=== PATIENT | male | born 1990 | race African-American/Black ===

== ENCOUNTER 2022-08-06 08:30 | Emergency (ER) | payer OTHER, SELFPAY ==
[2022-08-06] VITALS (7 sets, daily range): BP systolic 127–154; BP diastolic 89–100; PULSE 70–107; RESP 14–19; O2SAT 98–99
--- NOTE | ~2022-08-06 | US_ITS ---
US right upper quadrant INDICATION: Epigastric pain. PROCEDURE: Realtime right upper abdominal ultrasound. COMPARISON: No prior studies for comparison. FINDINGS: The pancreas is normal without focal mass or pancreatic ductal dilation. Liver echotexture is normal without focal mass or intrahepatic biliary dilatation. Liver is enlarged measuring 18 cm. There is normal directional flow in the portal vein. The gallbladder is normal without stones, gallbladder wall thickening or pericholecystic fluid. Comm on bile duct measures 4 mm. No sonographic Gifford's sign. IMPRESSION: 1: Hepatomegaly. Reviewed, dictated and finalized at location L. IMPRESSION: 1: Hepatomegaly.
--- NOTE | ~2022-08-06 | XR_ITS ---
EXAMINATION: XR chest 2V DATE: 08/06/2022 09:20 INDICATION: Right chest pain. Nausea. Shortness of breath. TECHNIQUE: Frontal and lateral views of the chest were obtained. COMPARISON: None. FINDINGS: The chest demonstrates clear lungs without pneumonia, pleural effusion, or pneumothorax. Th e heart size is normal. IMPRESSION: 1. No acute cardiopulmonary disease. Reviewed, dictated and finalized at location A.
--- NOTE | 2022-08-06 08:51 | ECG_ITS ---
Measurements Intervals [place] Rate: 79 P: 57 ID: [id number] QRS: 51 QRSD: 104 T: 38 QT: 352 QTc: 405 Interpretive Statements SINUS RHYTHM BORDERLINE ECG NO PREVIOUS ECG AVAILABLE FOR COMPARISON Electronically Signed On 08-06-2022 9:46:19 CDT by Kvng Martin D.O.
[2022-08-06] MEDS: BELLADONNA ALK/PHENOB ELIX 10 ML, MAG HYDROX/ALUMINUM HYD/SIMETH 30 ML, LIDOCAINE HCL 2... PO (08:59)
[2022-08-06 09:14] LABS: Basophils Percent Auto 0.7 % (0.2-1.2); Eosinophils Absolute Auto 0.1 K/mm3 (0-0.3); Eosinophils Percent Auto 1.4 % (0-4.4); Hematocrit 39.1 % (42.0-52.0); Hemoglobin 13.4 g/dL (14.0-18.0); Immature Granulocyte Absolute 0.01 K/mm3 (0.00-0.031); Immature Granulocyte Percent A 0.2 % (0-0.5); Lymphocytes Absolute Auto 2.15 K/mm3 (0.9-3.2); Lymphocytes Percent Auto 36.4 % (18.3-44.2); Mean Corpuscular HGB Conc 34.3 g/dl (32-36); Mean Corpuscular Hemoglobin 28.9 pg (26-34); Mean Corpuscular Volume 84.3 fl (80-100); Mean Platelet Volume 9.7 fl (7.4-10.4); Monocytes Absolute Auto 0.4 K/mm3 (0.1-0.6); Monocytes Percent Auto 5.9 % (2.6-8.5); Neutrophils Absolute Auto 3.3 K/mm3 (1.3-6.7); Neutrophils Percent Auto 55.4 % (45.5-73.1); Platelet Count Result 245 k/mm3 (150-375); Red Blood Count 4.64 M/mm3 (4.6-6.20); Red Cell Distribution Width 11.8 % (11.5-14.5); White Blood Count 5.9 K/mm3 (4.5-10.0)
[2022-08-06 09:20] LABS: INR 0.9; Prothrombin Time 12.8 Seconds (11.1-14.7)
[2022-08-06 09:21] LABS: Partial Thromboplastin Time 26.9 SECONDS (22.3-36.8)
[2022-08-06 09:22] LABS: Alanine Aminotransferase 183 U/L (6-50); Albumin Level 4.2 g/dL (3.5-5.1); Alkaline Phosphatase 101 U/L (38-126); Anion Gap 5 mmol/L (8-16); Aspartate Amino Transferase 115 U/L (17-59); Bilirubin,Total 0.4 mg/dL (0.2-1.3); Blood Urea Nitrogen 13 mg/dL (9-20); Calcium 8.9 mg/dL (8.4-10.2); Carbon Dioxide 29 mmol/L (22-30); Chloride 105 mmol/L (98-107); Estimated CRCL calculation 99 ml/min; Estimated Glomerular Filt Rate > 60; Glucose 116 mg/dL (65-110); Lipase 120 U/L (23-300); Potassium 3.6 mmol/L (3.4-5.0); Sodium 139 mmol/L (137-145)
--- NOTE | 2022-08-06 09:37 | ED.GENADULT ---
HPI - General Adult General Chief complaint: Unspecified Stated complaint: Heart palps, n/v, cold sweats Time Seen by Provider: 08/06/22 08:32 History of Present Illness HPI narrative: Patient is a 31-year-old male who presents ER with chest discomfort and tightness. Ongoing for a week. Associated with burning back of his throat and worsens with laying down flat. No modification with eating or drinking. No fevers chills or sweats. No exertional chest pain. Patient has had some nausea and vomiting with this. Denies blood in the emesis. No dark black stools. Had some sweats as well. Related Data Allergies Allergy/AdvReac Type Severity Reaction Status Date / Time No Known Allergies Allergy Verified 08/06/22 08:37 Review of Systems Review of Systems: All systems reviewed & are unremarkable except as noted in HPI and below Constitutional: Constitutional: Denies chills and Denies fever(s) Comments: Sweats ENT: Denies nasal congestion and Denies sore throat Cardiovascular: Cardiovascular: Reports chest pain, Denies irregular heart rhythm and Denies radiating jaw, neck or arm pain Respiratory: Respiratory: Denies cough, Denies dyspnea and Denies wheezing Gastrointestinal: Gastrointestinal: Denies abdominal pain, Reports heartburn, Reports nausea and Reports vomiting PMFSH Past Medical History Medical History (Updated 08/06/22 @ 13:45 by Steve Marc MD) GERD (gastroesophageal reflux disease) Surgical History Surgical History (Updated 08/06/22 @ 13:45 by Steve Marc MD) No history of previous surgery Exam Narrative: GENERAL: Well-appearing, well-nourished, and in no acute distress. HEAD: Normocephalic, atraumatic. ENT: Mucous membranes moist. CHEST: Clear to auscultation. No respiratory distress. HEART: Regular rate and rhythm. Normal peripheral pulses. ABDOMEN: Soft, nontender, nondistended. EXTREMITIES: Normal range of motion. No edema. SKIN: Warm, dry, no rash. NEURO: Alert and oriented x3. PSYCH: Normal mood and affect. Course Course Emergency Course: Patient resting comfortably. Troponin negative x2. Patient having some hiccuping after GI cocktail. On follow-up with PCP. Patient verbalized understanding. Vital Signs Vital signs: Vital Signs Pulse Rate 98 08/06/22 08:34 Respiratory Rate 15 08/06/22 08:34 Blood Pressure 154/100 H 08/06/22 08:34 Pulse Oximetry 99 08/06/22 08:34 Oxygen Delivery Room Air 08/06/22 08:34 Pulse Rate 88 08/06/22 11:27 Respiratory Rate 16 08/06/22 11:27 Blood Pressure 127/89 08/06/22 11:27 Pulse Oximetry 98 08/06/22 11:27 Oxygen Delivery Room Air 08/06/22 08:34 Medical Decision Making Vital Signs Vital Signs: Vital Signs Pulse Rate 98 08/06/22 08:34 Respiratory Rate 15 08/06/22 08:34 Blood Pressure 154/100 H 08/06/22 08:34 Pulse Oximetry 99 08/06/22 08:34 Oxygen Delivery Room Air 08/06/22 08:34 Pulse Rate 88 08/06/22 11:27 Respiratory Rate 16 08/06/22 11:27 Blood Pressure 127/89 08/06/22 11:27 Pulse Oximetry 98 08/06/22 11:27 Oxygen Delivery Room Air 08/06/22 08:34 Lab Data 08/06/22 09:04 08/06/22 09:04 Labs: Lab Results 08/06/22 08/06/22 Range/Units 09:04 12:11 WBC 5.9 (4.5-10.0) K/mm3 RBC 4.64 (4.6-6.20) M/mm3 Hgb 13.4 L (14.0-18.0) g/dL Hct 39.1 L (42.0-52.0) % MCV 84.3 (80-100) fl MCH 28.9 (26-34) pg MCHC 34.3 (32-36) g/dl RDW 11.8 (11.5-14.5) % Plt Count 245 (150-375) k/mm3 MPV 9.7 (7.4-10.4) fl Immature Gran % (Auto) 0.2 (0-0.5) % Neut % (Auto) 55.4 (45.5-73.1) % Lymph % (Auto) 36.4 (18.3-44.2) % [place] % (Auto) 5.9 (2.6-8.5) % Eos % (Auto) 1.4 (0-4.4) % Baso % (Auto) 0.7 (0.2-1.2) % Lymph # (Auto) 2.15 (0.9-3.2) K/mm3 [place] # (Auto) 0.4 (0.1-0.6) K/mm3 Eos # (Auto) 0.1 (0-0.3) K/mm3 Baso # (Auto) 0.0 (0.0-0.1) K/mm3
[2022-08-06 09:53] LABS: Troponin I 0.014 ng/mL (0.000-0.034)
[2022-08-06] MEDS: KETOROLAC 30 MG/ML VIAL (*BKC) IV PUSH (11:45)
[2022-08-06 12:37] LABS: Troponin I < 0.012 ng/mL (0.000-0.034)
== END 2022-08-06 13:50 | disposition home or self-care (01) ==
PROVIDERS: Emergency Provider Emergency Medicine
DX: R07.89 Other chest pain (principal); K21.9 Gastro-esophageal reflux disease without esophagitis; R16.0 Hepatomegaly, not elsewhere classified
CPT/HCPCS: 36415; 71046; 76705; 80053; 83690; 84484; 85025; 85610; 85730; 93005; 96374; 99284; A9270; J1885

== ENCOUNTER 2022-08-26 13:52 | Outpatient (CLI) | payer OTHER, SELFPAY ==
[2022-08-26 15:42] LABS: Iron 67 ug/dL (49-181)
[2022-08-26 15:58] LABS: Percent Iron Saturation 20 % (20-50)
[2022-08-26 16:15] LABS: Hepatitis B Surface Antigen Negative (Negative)
[2022-08-26 16:21] LABS: HAV RESULT Negative (Negative); Hepatitis B Core IgM Result Negative (Negative)
[2022-08-26 16:32] LABS: Hepatitis C Virus Antibody Negative (Negative)
[2022-08-29 13:14] LABS: GGT 316 U/L (3-90)
[2022-08-29 19:52] LABS: Ceruloplasmin 29 mg/dL (18-36)
[2022-08-30 12:20] LABS: LKM 1 Antibody <=20.0 U (<=20.0)
[2022-08-30 21:43] LABS: Mitochondrial (M2) Ab (IgG) <=20.0 U (<=20.0)
[2022-09-06 15:48] LABS: Alpha Fetoprotein Tumor Marker 3.1 ng/mL (<6.1)
[2022-09-08 12:37] LABS: ALT 89 U/L (9-46); Alpha-2-Macroglobulin 152 mg/dL (106-279); Apolipoprotein A1 145 mg/dL (94-176); Fibrosis Score 0.12; Fibrosis Stage F0; GGT 323 U/L (3-90); Haptoglobin 158 mg/dL (43-212); Necroinflammat Act Grade A1-A2; Total Bilirubin 0.2 mg/dL (0.2-1.2)
== END 2022-08-26 13:53 | disposition home or self-care (01) ==
LOC: ANHLAB 13:53
PROVIDERS: PCP Nurse Practitioner Family; Visit Provider Nurse Practitioner Family
DX: R79.89 Other specified abnormal findings of blood chemistry (principal); R16.0 Hepatomegaly, not elsewhere classified; R10.13 Epigastric pain; R11.2 Nausea with vomiting, unspecified; R14.2 Eructation
CPT/HCPCS: 36415; 80074; 81596; 82105; 82390; 82728; 82977; 83520; 83540; 83550; 86038; 86376